=== PATIENT | male | born 1995 | race Caucasian/White ===

== ENCOUNTER 2021-07-15 18:53 | Emergency (ER) | payer SELFPAY | END 2021-07-15 20:30 | disposition home or self-care (01) | LOC: LL.ED 18:53 | DX: J30.9 Allergic rhinitis, unspecified (principal); K21.9 Gastro-esophageal reflux disease without esophagitis; Z72.0 Tobacco use | CPT/HCPCS: 99283 ==

== ENCOUNTER 2021-07-30 03:25 | Emergency (ER) | payer SELFPAY ==
[2021-07-30] MEDS ORDERED: Ondansetron 4 MG/2 ML SDV IVPUSH ONE (03:32)
[2021-07-30] MEDS: Sodium Chloride 0.9% 1,000 ML IV SCH ×2 (03:50→05:07)
[2021-07-30 03:57] LABS: CHLORIDE,CL 105 mmol/L (98-107); SODIUM,NA 141 mmol/L (136-145)
== END 2021-07-30 12:20 | disposition home or self-care (01) ==
LOC: LL.ED 03:25
DX: F10.129 Alcohol abuse with intoxication, unspecified (principal); Y90.1 Blood alcohol level of 20-39 mg/100 ml
CPT/HCPCS: 36415; 70450; 71045; 72125; 72170; 80053; 80307; 85025; 96374; 99283; 99284-25; J2405; J7030